=== PATIENT | male | born 1950 | race Caucasian/White ===

== ENCOUNTER → 2022-03-15 | Outpatient (CLI) | payer MEDICARE ==
--- NOTE | 2022-03-15 09:43 | Diagnostic Imaging Report ---
INDICATION: SHOULDER PAIN, RENAL CELL CANCER COMPARISON: None. FINDINGS: Multiple radiographic views of the bilateral shoulders were obtained and show no fractures, dislocations, or other acute bony abnormalities. Mild osteoarthritic changes are noted. Otherwise, joint spaces Are well maintained throughout. The soft tissues appear unremarkable. No unexpected radiopaque foreign bodies are identified. IMPRESSION: Mild osteoarthritic changes, but otherwise unremarkable radiographic exam of the bilateral shoulders. Dictated by: Dictated on workstation # [id number]
== END ==
LOC: RAD FS 08:31
DX: C64.9 Malignant neoplasm of unspecified kidney, except renal pelvis (principal); M19.011 Primary osteoarthritis, right shoulder; M19.012 Primary osteoarthritis, left shoulder